=== PATIENT | male | born 1995 | race Caucasian/White ===

== ENCOUNTER → 2016-12-16 | Outpatient (CLI) | payer OTHER ==
--- NOTE | 2016-12-16 16:38 | REP ---
PA and lateral chest: Comparison is 10/24/2015. The lung camacho are clear. The cardiac size is normal The shaka, mediastinum, and bony thorax are unremarkable. Impression: Negative PA and lateral chest. There is no interval change. Signed by Jorge Yeung MD 12/16/2016 04:30 P
== END ==
LOC: M SMT 10:45
PROVIDERS: ATTEND Nurse Practitioner Adult Health
DX: R06.02 Shortness of breath (principal)